=== PATIENT | male | born 1980 | race Caucasian/White ===

== ENCOUNTER 2017-05-14 21:24 | Emergency (ER) | payer MEDICARE, OTHER ==
[2017-05-14] MEDS ORDERED: SOD CHLORIDE 0.9% 1,000 ML IV (22:31)
== END 2017-05-14 23:29 | disposition left against medical advice (07) ==
LOC: E/R 21:24
DX: F10.129 Alcohol abuse with intoxication, unspecified (principal); R40.2142 Coma scale, eyes open, spontaneous, at arrival to emergency department; R40.2252 Coma scale, best verbal response, oriented, at arrival to emergency department; R40.2362 Coma scale, best motor response, obeys commands, at arrival to emergency department
CPT/HCPCS: 99283

== ENCOUNTER 2017-07-12 19:28 | Emergency (ER) | payer MEDICARE, OTHER ==
[2017-07-12] MEDS: CEFTRIAXONE 1 GM INJ IM (19:54)
[2017-07-12] MEDS: KETOROLAC 30 MG INJ IM (19:54)
[2017-07-12] MEDS: NEOMYC/POLYMYX/BACIT 30 GM OINT TOP (19:54)
[2017-07-12] MEDS ORDERED: LIDOCAINE 1% (MDV) 20 ML INJ SC (21:00)
[2017-07-12] MEDS ORDERED: DIPHENHYDRAMINE 50 MG INJ (21:02)
[2017-07-12] MEDS ORDERED: HALOPERIDOL 5 MG INJ (21:02)
[2017-07-12] MEDS ORDERED: LORAZEPAM 2 MG INJ (21:04)
[2017-07-12] MEDS: LORAZEPAM 2 MG INJ IM (21:08)
[2017-07-12] MEDS: LIDOCAINE 1% (MDV) 10 ML INJ INJ (21:37)
== END 2017-07-12 21:39 | disposition home or self-care (01) ==
LOC: E/R 19:28
DX: R45.1 Restlessness and agitation (principal); F15.10 Other stimulant abuse, uncomplicated; F10.929 Alcohol use, unspecified with intoxication, unspecified; S50.11XA Contusion of right forearm, initial encounter; R07.9 Chest pain, unspecified; W26.8XXA Contact with other sharp object(s), not elsewhere classified, initial encounter; Y92.9 Unspecified place or not applicable
CPT/HCPCS: 70450; 71045; 73090-RT; 73130-LT; 73130-RT; 73562; 96372; 99285-25